=== PATIENT | female | born 1960 | race Caucasian/White ===

== ENCOUNTER 2019-03-21 04:46 | Emergency (ER) | payer OTHER ==
[~2019-03-21] VITALS: Ht 172.7 cm; Wt 127.0 kg
[~2019-03-21 04:46] MED LIST: ACETAMINOPHEN RE; ACETAMINOPHEN325 M1 PO; ACETAMINOPHEN650 M5 RE; ADULT LOW DOSE81 MG; AGGRENOX CAPSU1 EACH; AGGRENOX CAPSU1 EACH PO; AMARYL2 MG; AMARYL2 MG PO; AMBEREN PO; AMBIEN 5 MG TABL5 M1; APAP500 PO; ASPIR 8181 MG; ASPIRIN EC81 M1 PO; ATIVAN0.5 MG PO; AUGMENTIN 875875 MG PO; CARDIZEM CD180 MG; CATAPRESS3; CATAPRESS3 TP; COMPLETE M9 MG/15 ML PO; DEPAKOTE ER500 MG; DEPAKOTE ER500 MG PO; DILTIAZEM 24HR180 MG PO; DILTIAZEM ER180 M1 PO; DUONEB 2.5-0.5 M3 ML; FEVERALL JR 32325 MG RE; FEVERALL JR 32325 MG SP; FLONASE 0.05%50 MCG; FLONASE 0.05%50 MCG NS; FLONASE NS; FUROSEMIDE 40 M40 MG PO; GALZIN25 MG PO; GLYCOLAX POWDER17 GM PO; GLYCOLAX17 GM; GLYCOLAX17 GM PO; HALDOL PO; HALOPERIDOL 5 MG5 MG; HYDROCERIN CREA1 JAR TOP; IMDUR 30 MG TAB30 M1 PO; ISOSORBIDE DINI30 MG PO; K-DUR 20 MEQ T20 MEQ PO; KLOR-CON 1010 MEQ; LANTUSSOLASTAR; LASIX 40 MG TAB40 M1 PO; LASIX 40 MG TAB40 MG PO; LAXATIVE PEG 3317 GM; LEVOTHROID150 MC1 PO; LISINOPRIL2.5 MG PO; LOPRESSOR25 PO; LORAZEPAM 0.50.5 MG PO; MACROBID 100 M100 M1 PO; MEDIFIN EX100 MG/5 M; MINITRAN1 EAC2; MULTIVITAMINS; NEURONTIN 300300 M1; NITRO-DUR 10 C0.2 MG TD; NITRODUR TP; NOVOLOG100 UNIT/1; NOVOLOG100 UNIT/1 SQ; NUEDEXTA 20-101 EACH; OMEPRAZOLE20 M2; OMEPRAZOLE20 MG PO; PENTOXIFYLLINE400 MG; PERCOCET 5-3251 EACH PO; PRISTIQ50 MG PO; PROTONIX IV40 MG PO; PROTONIX40 M2 PO; REMERON 30 MG T30 MG; REMERON30 M1 PO; REMERON30 MG PO; RISPERDAL 1 MG T1 MG PO; RISPERDAL0.25 MG; RISPERDAL1 MG/1 ML PO; SANTYL OINTMENT30 G1 TOP; SENOKOT-S1 TA1; SIMVASTATIN20 MG PO; SYNTHROID PO; SYNTHROID150 MCG PO; TOPROL XL25 MG PO; VITAMINC500 PO; VITCB500GO PO; ZESTRIL2.5 MG PO; ZINC OXIDE60 GM; ZINC OXIDE60 GM TOP; ZOCOR 20 MG TAB20 M1; ZOCOR 20 MG TAB20 M1 PO; [UNRECOGNIZED DRUG - OTHER]; [UNRECOGNIZED DRUG - OTHER] TP
--- NOTE | 2019-03-24 10:46 | EKG ---
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 : 1960 Requested By: Jacinto Gaitan Order Number: [id number] MD: Gavin Mcdermott Measurements Intervals [place] Rate: 78 P: 246 MD: 137 QRS: 190 QRSD: 215 T: 104 QT: 471 QTc: 537 Interpretive Statements Sinus or ectopic atrial rhythm Ventricular premature complex right bundle branch block pattern Compared to ECG 01/31/2011 10:36:50 Right bundle branch block pattern is new Electronically Signed On 03-24-2019 10:46:10 GLOVE CUFFER by Gavin Mcdermott [email or web address] <ELECTRONICALLY SIGNED> By: Gavin Mcdermott MD 03/24/19 [id number] MD HARESH Alvarado
== END 2019-03-21 05:05 ==
LOC: ER 04:46
DX: I46.9 Cardiac arrest, cause unspecified (principal); I10 Essential (primary) hypertension; E11.9 Type 2 diabetes mellitus without complications; E78.5 Hyperlipidemia, unspecified; E03.9 Hypothyroidism, unspecified; K21.9 Gastro-esophageal reflux disease without esophagitis; Z86.73 Personal history of transient ischemic attack (TIA), and cerebral infarction without residual deficits; Z88.0 Allergy status to penicillin; Z88.6 Allergy status to analgesic agent